=== PATIENT | male | born 1995 | race Caucasian/White ===

== ENCOUNTER 2019-01-19 21:14 | Emergency (ER) | payer SELFPAY ==
[~2019-01-19] VITALS: Ht 185.4 cm; Wt 68.0 kg
[2019-01-19 21:24] VITALS: BP 109/64
--- NOTE | 2019-01-19 21:29 | NUR ---
PT FINGER DRESSED WITH GAUZE, BLEEDING CONTROLLED, PT TO LOBBY VSS.
--- NOTE | 2019-01-19 23:32 | NUR ---
PT AMBULATED TO BED 12
--- NOTE | 2019-01-19 23:45 | NUR ---
23 Y/O MALE PRESENTS TO ED WITH RIGHT INDEX FINGER LACERATION. PT STATES CLEANING A KNIFE AND ACCIDENTALLY CUTTING SELF AT APPROXIMATELY 2100 TODAY. LACERATION IS APPROXIMATELY 1CM WIDE. DENIES ANY PAIN, STATES FEELING NUMBNESS. BLEEDING WAS CONTROLLED BY PT WITH GAUZE. PT UNABLE TO GIVE VIABLE INFORMATION REGARDING VACCINATIONS. PT VSS. ERMD AWARE. WILL CONTINUE TO MONITOR.
[2019-01-20] MEDS ORDERED: LIDOCAINE 1% ***ER ONLY *** 10 MG/ML VIAL INJ ONE (01:45)
[2019-01-20] MEDS ORDERED: NEOMYCIN/POLYMYXIN/BACITRACIN 0.9 GM/1 PKT TP ONE (01:45)
--- NOTE | 2019-01-20 02:06 | NUR ---
PT WOUND COVERED WITH BANDAID AFTER BACITRACIN APPLIED
[2019-01-20] MEDS ORDERED: LIDOCAINE MPF 1% - 5 mL VIAL 5 ML ONE (02:12)
[2019-01-20 02:20] VITALS: BP 111/61
--- NOTE | 2019-01-20 02:20 | NUR ---
PT DISCHARGED WITH PAPERWORK. NO RX PROVIDED. EDUCATED PT REGARDING D/C DIAGNOSIS. PT VERBALIZED UNDERSTANDING OF TEACHING. TOLD PT TO FOLLOW UP WITH PCP AND WHEN TO RETURN TO ED. PT VSS. ALL QUESTIONS ANSWERED.
== END 2019-01-20 02:20 | disposition home or self-care (01) ==
LOC: MED 21:14
DX: S61.210A Laceration without foreign body of right index finger without damage to nail, initial encounter (principal); Z90.49 Acquired absence of other specified parts of digestive tract; Z98.890 Other specified postprocedural states; W26.0XXA Contact with knife, initial encounter; Y93.89 Activity, other specified; Y92.89 Other specified places as the place of occurrence of the external cause; Y99.8 Other external cause status
CPT/HCPCS: 12001; 90471; 90715; 99283; J2001